=== PATIENT | female | born 1985 | race Caucasian/White ===

== ENCOUNTER 2021-10-17 15:22 | Emergency (ER) | payer OTHER ==
[2021-10-17] MEDS ORDERED: SODIUM CHLORIDE 0.9% 500 ML 500 ML IV ONE (15:36)
[2021-10-17] MEDS ORDERED: SODIUM CHLORIDE 0.9% 1,000 ML IV ONE (15:36)
--- NOTE | 2021-10-17 15:40 | ED ---
General Adult HPI - General Chief complaint: Fall Stated complaint: ETOH Time Seen by Provider: 10/17/21 15:30 Source: patient, EMS, RN notes reviewed, old records reviewed Mode of arrival: EMS - History of Present Illness Initial comments: This is a 36-year-old female presents to the emergency department intoxicated. Patient went to [place] to be admitted there for rehabilitation however she fell asleep in her chair and father chair and hit her face on the floor. Vicky ent complains of some nasal pain. Patient falls asleep quite quickly in the emergency department. We can get her to speak to you if you shake her to wake her up. Patient states she did drink a lot today. Patient denies any drug use. Patient denies any headache patient denies chest pain difficulty breathing shortness breath per patient states she has got pneumonia white off in the past. Patient states she has been coughing a little. Patient denies any abdominal pain patient denies nausea vomiting diarrhea. - Related Data Home Medications Medication Instructions Recorded Confirmed Methadone HCl [Methadone Intensol] 1 dose PO DAILY 12/15/14 10/17/21 Allergies Allergy/AdvReac Type Severity Reaction Status Date / Time cefaclor [From Ceclor] Allergy Mild Unknown Verified 10/17/21 18:41 Review of Systems ROS Statement: Those systems with pertinent positive or pertinent negative responses have been documented in the HPI. ROS Other: All systems not noted in ROS Statement are negative. Past Medical History Past Medical History: No Reported History Additional Past Medical History / Comment(s): methadone History of Any Multi-Drug Resistant Organisms: MRSA MDRO Source:: multiple infrcted areas Past Surgical History: Section Past Psychological History: Anxiety, Depression Past Alcohol Use History: Occasional Past Drug Use History: Opiates General Exam - General Exam Comments Initial Comments: GENERAL: Patient is well-developed and well-nourished. Patient is nontoxic and well- hydrated and is in no acute distress. Patient falls asleep as she stopped talking to her. ENT: Neck is soft and supple. No significant lymphadenopathy is noted. Oropharynx is clear. Moist mucous membranes. Neck has full range of motion without eliciting any pain. EYES: The sclera were anicteric and conjunctiva were pink and moist. Extraocular movements were intact and pupils were equal round and reactive to light. Eyelids were unremarkable. PULMONARY: Patient rhonchi both bases. CARDIOVASCULAR: There is a regular rate and rhythm without any murmurs gallops or rubs. ABDOMEN: Soft and nontender with normal bowel sounds. SKIN: Skin is clear with no lesions or rashes and otherwise unremarkable. NEUROLOGIC: Patient is alert and oriented x3. Cranial nerves II through XII are grossly intact. Motor and sensory are also intact. Normal speech, volume and content. Symmetrical smile. MUSCULOSKELETAL: Normal extremities with adequate strength and full range of motion. No lower extremity swelling or edema. No calf tenderness. LYMPHATICS: No significant lymphadenopathy is noted PSYCHIATRIC: Normal psychiatric evaluation. Course Vital Signs 10/17/21 10/17/21 10/17/21 15:24 17:51 19:43 Temperature 98.1 F 97.5 F L Pulse Rate 85 80 76 Respiratory 16 18 18 Rate Blood Pressure 128/82 124/79 113/74 O2 Sat by Pulse 94 L 98 98 Oximetry Medical Decision Making - Medical Decision Making CT of the head shows no acute abnormalities. CT of the C-spine showed no acute abnormality. CT of the facial bones showed no acute normalities. Chest x-ray shows no acute abnormality. After patient got a good sleep she was awake and alert and stated that this morning prior to going to the rehab center she took 175 mg of methadone which is what she normally takes she denies taking any extra. Patient states she did drink this morning but not nearly as much as she normally does. Patient states currently she is without any symptoms and feels fine she would like to go to rehab. - Lab Data Result diagrams: 10/17/21 15:44 10/17/21 18:45 Lab Results 10/17/21 10/17/21 Range/Units 15:44 18:45 WBC 6.7 (3.8-10.6) k/uL RBC 4.14 (3.80-5.40) m/uL Hgb 13.1 (11.4-16.0) gm/dL Hct 39.8 (34.0-46.0) % MCV 96.1 (80.0-100.0) fL MCH 31.7 (25.0-35.0) pg MCHC 33.0 (31.0-37.0) g/dL RDW 14.1 (11.5-15.5) % Plt Count 145 L (150-450) k/uL MPV 7.9 Neutrophils % 61 % Lymphocytes % 25 % Monocytes % 8 % Eosinophils % 4 % Basophils % 1 % Neutrophils # 4.0 (1.3-7.7) k/uL Lymphocytes # 1.7 (1.0-4.8) k/uL Monocytes # 0.6 (0-1.0) k/uL Eosinophils # 0.3 (0-0.7) k/uL Basophils # 0.0 (0-0.2) k/uL Sodium 138 (137-145) mmol/L Potassium 4.4 (3.5-5.1) mmol/L Chloride 103 (98-107) mmol/L Carbon Dioxide 29 (22-30) mmol/L Anion Gap 6 mmol/L BUN 13 (7-17) mg/dL Creatinine 0.49 L (0.52-1.04) mg/dL Est GFR (CKD-EPI)AfAm >90 (>60 ml/min/1.73 sqM) Est GFR (CKD-EPI)NonAf >90 (>60 ml/min/1.73 sqM) Glucose 83 (74-99) mg/dL Calcium 8.3 L (8.4-10.2) mg/dL Magnesium 1.9 (1.6-2.3) mg/dL Total Bilirubin 0.4 (0.2-1.3) mg/dL AST 92 H (14-36) U/L ALT 74 H (4-34) U/L Alkaline Phosphatase 79 (38-126) U/L Total Protein 6.6 (6.3-8.2) g/dL Albumin 3.8 (3.5-5.0) g/dL Serum Alcohol 25 mg/dL Disposition Clinical Impression: Alcohol abuse, Narcotic abuse, Facial contusion Disposition: HOME SELF-CARE Condition: Good Instructions (If sedation given, give patient instructions): Fall Prevention (ED) Is patient prescribed a controlled substance at d/c from ED?: No Referrals: None,Stated [Primary Care Provider] - 1-2 days Time of Disposition: 19:50
[2021-10-17 15:54] LABS: Basophils % (A) 1 %; Eosinophils # (A) 0.3 k/uL (0-0.7); Eosinophils % (A) 4 %; HCT 39.8 % (34.0-46.0); HGB 13.1 gm/dL (11.4-16.0); Lymphocytes # (A) 1.7 k/uL (1.0-4.8); Lymphocytes % (A) 25 %; MCH 31.7 pg (25.0-35.0); MCV 96.1 fL (80.0-100.0); Mean Platelet Volume 7.9; Monocytes # (A) 0.6 k/uL (0-1.0); Monocytes % (A) 8 %; Neutrophils % (A) 61 %; Platelet Count 145 k/uL (150-450); RBC 4.14 m/uL (3.80-5.40); RDW 14.1 % (11.5-15.5); WBC 6.7 k/uL (3.8-10.6)
--- NOTE | 2021-10-17 17:11 | XR ---
EXAMINATION TYPE: XR chest 2V DATE OF EXAM: 10/17/2021 4:44 PM COMPARISON: None TECHNIQUE: XR chest 2V Frontal and lateral views of the chest. CLINICAL INDICATION:Female, 36 years old with history of Difficulty breathing ; FINDINGS: Lungs/Pleura: There is no evidence of pleural effusion, focal consolidation, or pneumothorax. Pulmonary vascularity: Unremarkable. Heart/mediastinum: Cardiomediastinal silhouette is unremarkable. Musculoskeletal: No acute osseous pathology. IMPRESSION: No acute cardiopulmonary disease/process.
--- NOTE | 2021-10-17 17:20 | CT ---
EXAMINATION TYPE: CT facial bones wo con CT DLP: 1411.4 mGycm, Automated exposure control for dose reduction was used. DATE OF EXAM: 10/17/2021 4:46 PM COMPARISON: CT brain same day CLINICAL INDICATION:Female, 36 years old with history of fall; TECHNIQUE: Multiple unenhanced axial CT images were obtained of the facial bones soft tissue and bone windows. Coronal, axial and sagittal reformatted images were also provided in soft tissue and bone windows and submitted for interpretation. FINDINGS: There is no evidence of fracture, subluxation, dislocation, or significant soft tissue swelling. The orbital contents are unremarkable.The temporal-mandibular joints appear symmetric. The visualized por tion of the paranasal sinuses demonstrate paranasal sinus disease most pronounced in the maxillary si nuses. IMPRESSION: No evidence of facial bone fracture.
--- NOTE | 2021-10-17 17:20 | CT ---
EXAMINATION TYPE: CT brain cspine wo con CT DLP: 1411.4 mGycm, Automated exposure control for dose reduction was used. DATE OF EXAM: 10/17/2021 4:46 PM COMPARISON: None. CLINICAL INDICATION:Female, 36 years old with history of Trauma; Fall. TECHNIQUE: Brain: Multiple axial CT images of the brain were obtained without IV contrast. Cspine: Axial CT images from the skull base to the inferior aspect of T2 we obtained without intraven ous contrast. Coronal and sagittal reformatted images were also reviewed. FINDINGS: Brain: Extra-axial spaces: No abnormal extra-axial fluid collections. Ventricular system: Within normal limits Cerebral parenchyma: No acute intraparenchymal hemorrhage or mass effect. The srivastava-white junction is well differentiated. Cerebellum: Unremarkable. Mass effect: No evidence of midline shift. Intracranial vasculature: unremarkable Soft tissues: Normal. Calvarium/osseous structures: No depressed skull fracture. Paranasal sinuses and mastoid air cells: Moderate paranasal sinus disease. Visualized orbits: Orbital contents are intact. Cervical spine: Fracture: None. Osseous structures: Unremarkable Vertebral alignment: Within normal limits. Spinal canal/Neural Foramina: No evidence of significant spinal canal narrowing. No evidence for sign ificant neural foraminal stenosis. Neck soft tissues: Prevertebral soft tissues are within normal limits. Other: Layering secretions seen within the trachea. Mild mosaic attenuation likely secondary to phase of inspiration. IMPRESSION: 1. No acute intracranial process. 2. No evidence of cervical spine fracture.
[2021-10-17 17:52] VITALS: RESP 18
[2021-10-17 19:13] LABS: ALT 74 U/L (4-34); AST 92 U/L (14-36); African American GFR (CKD) >90 (>60 ml/min/1.73 sqM); Albumin 3.8 g/dL (3.5-5.0); Alcohol 25 mg/dL; Alkaline Phosphatase 79 U/L (38-126); Anion Gap 6 mmol/L; Blood Urea Nitrogen 13 mg/dL (7-17); Calcium 8.3 mg/dL (8.4-10.2); Carbon Dioxide 29 mmol/L (22-30); Chloride 103 mmol/L (98-107); Glucose 83 mg/dL (74-99); Magnesium 1.9 mg/dL (1.6-2.3); Non-African American GFR(CKD) >90 (>60 ml/min/1.73 sqM); Potassium 4.4 mmol/L (3.5-5.1); Sodium 138 mmol/L (137-145); Total Bilirubin 0.4 mg/dL (0.2-1.3); Total Protein 6.6 g/dL (6.3-8.2)
[2021-10-17 19:44] VITALS: BP 113/74; PULSE 76; TEMP 97.5
[2021-10-17] MEDS ORDERED: LORazepam 1 MG TAB PO STA (19:49)
== END 2021-10-17 20:16 | disposition home or self-care (01) ==
LOC: EC 15:22
DX: S00.33XA Contusion of nose, initial encounter (principal); F10.10 Alcohol abuse, uncomplicated; F17.200 Nicotine dependence, unspecified, uncomplicated; Y90.1 Blood alcohol level of 20-39 mg/100 ml; W19.XXXA Unspecified fall, initial encounter
CPT/HCPCS: 36415; 80053; 83735; 85025; 71046; 72125; 70486; 70450; 99284; 96360; 96361; G0480; 80320